=== PATIENT | male | born 2000 ===

== ENCOUNTER 2021-08-19 08:30 | Outpatient (CLI) | payer OTHER | END 2021-08-19 09:00 | disposition home or self-care (01) | LOC: PPH VACUNA 08:30 | PROVIDERS: ATTEND Emergency Medicine Pediatric Emergency Medicine | DX: Z23 Encounter for immunization (principal) ==

== ENCOUNTER 2025-05-29 14:20 | Outpatient (CLI) | payer OTHER | END 2025-05-29 14:27 | disposition home or self-care (01) | LOC: TOM 14:20 | DX: N20.0 Calculus of kidney (principal); Z88.0 Allergy status to penicillin; Z88.1 Allergy status to other antibiotic agents ==